=== PATIENT | male | born 1975 ===

== ENCOUNTER 2022-08-22 18:18 | Emergency (ER) | payer OTHER ==
[~2022-08-22] VITALS: Ht 182.9 cm; Wt 113.4 kg
[~2022-08-22 18:18] MED LIST: ALBIPROI; ALBU90OI; ALPR1 PO; DOXY100 PO; HYDACE5 PO; IBUP800 PO; LORA.5 PO; LORA1 PO; META800 PO; NAPR500 PO; NAPR550 PO; PRED20 PO; RXHYDACE PO; RXMETA400 PO; RXTRAM50 PO; SULTRIDS PO; TOBR.3OPSO OP; TRAM50 PO
== END 2022-08-22 20:44 | disposition home or self-care (01) ==
LOC: EDBD 18:18 → ER 18:18
DX: S01.81XA Laceration without foreign body of other part of head, initial encounter (principal); F17.210 Nicotine dependence, cigarettes, uncomplicated; W22.8XXA Striking against or struck by other objects, initial encounter; Z23 Encounter for immunization
CPT/HCPCS: 90714

== ENCOUNTER 2022-12-27 09:06 | Day surgery (SDC) | payer OTHER ==
[~2022-12-27] VITALS: Ht 180.3 cm; Wt 123.0 kg
[2022-12-27 09:27] VITALS: BP 126/83
[2022-12-27 09:28] VITALS: BP 125/80
--- NOTE | 2022-12-27 09:39 | NUR ---
Patient up to Ambulate independently. Gait steady. Patient states colon prep results LT YELLOW. Patient confirms NPO status and agrees with scheduled surgery. Patient States Post-Procedure ride home has been arranged WITH SH[facility].
--- NOTE | 2022-12-27 09:52 | NUR ---
12/27/22 0952 Anette Manuel HISTORY, CHART, MEDICATIONS AND ALLERGIES REVIEWED BEFORE START OF PROCEDURE. PATIENT CONFIRMS NPO STATUS AND AGREES WITH SCHEDULED PROCEDURE. 3-LEAD EKG REVIEWED WITH PHYSICIAN PRIOR TO START OF PROCEDURE. MONITOR INTACT WITH CONTINUOUS PULSE OXIMETRY,CAPNOGRAPHY, 3-LEAD EKG, INTERMITTENT BP. SUPPLEMENTAL O2 TO BE TITRATED THROUGHOUT PROCEDURE TO MAINTAIN O2 SATURATION ABOVE 90%. PATIENT DETERMINED TO BE ASA APPROPRIATE FOR PROPOFOL SEDATION PRIOR TO START OF PROCEDURE BY DR. MCINTOSH.
[2022-12-27 10:14] VITALS: BP 113/60
[2022-12-27 10:28] VITALS: BP 112/68
--- NOTE | 2022-12-27 10:40 | NUR ---
REPORT FROM ADRIANA MARCUS RN AT 1012. PT ALERT AND ORIENTED, ABLE TO REPOSITION SELF. REQUESTING PO FLUIDS.
--- NOTE | 2022-12-27 10:43 | NUR ---
Patient up to Ambulate independently. Gait steady. Discharge instructions reviewed with patient and pt spouse . Patient verbalizes understanding. Copy given to patient to take home. Patient States Post-Procedure ride home has been arranged. Pre-Op teaching done. Pt verbalizes understanding. Discharged via wheelchair to private car for ride home.
== END 2022-12-27 22:49 | disposition home or self-care (01) ==
LOC: ORSCMMR 09:06 → ORD 10:00 → ORSCMMR 10:00
PROVIDERS: Internal Medicine Gastroenterology
PROC: 0DBM8ZX Excision of Descending Colon, Via Natural or Artificial Opening Endoscopic, Diagnostic (ICD-10-PCS; principal; 2022-12-27 10:00)
DX: K62.5 Hemorrhage of anus and rectum (principal); K63.5 Polyp of colon; F17.210 Nicotine dependence, cigarettes, uncomplicated; K64.8 Other hemorrhoids
CPT/HCPCS: 88305; J2250; J2704; J7120